=== PATIENT | female | born 1955 | race Two or more races ===

== ENCOUNTER 2017-10-23 12:18 | Emergency (ER) | payer MEDICAID ==
[~2017-10-23] VITALS: Ht 147.3 cm; Wt 54.4 kg
[2017-10-23] MEDS ORDERED: HYDROCHLOROTHIA25 MG ORAL (12:40)
[2017-10-23] MEDS ORDERED: HUMULIN N100 UNIT/1 SUBQ (12:40)
[2017-10-23] MEDS ORDERED: VITAMIN D400 INTLU ORAL (12:40)
[2017-10-23] MEDS ORDERED: CANDESARTAN CILE4 MG PO (12:40)
[2017-10-23] MEDS ORDERED: JANUVIA25 MG ORAL (12:40)
[2017-10-23] MEDS ORDERED: ATORVASTATIN CA40 MG ORAL (12:40)
[2017-10-23 13:24] LABS: BASOPHILS % (AUTO) 0.4 % (0.0-2.0); HEMATOCRIT 38.4 % (37.0-47.0); HEMOGLOBIN 12.7 G/DL (12.0-16.0); MEAN CORPUSCULAR VOLUME 92 FL (80-99); MONOCYTES % (AUTO) 3.7 % (1.0-10.0); NEUTROPHILS % (AUTO) 83.9 % (45.0-75.0); PLATELET COUNT 286 K/UL (150-450); RED BLOOD COUNT 4.19 M/UL (4.20-5.40); WHITE BLOOD COUNT 10.5 K/UL (4.8-10.8)
[2017-10-23 13:33] LABS: ANION GAP 12 mmol/L (5-15); BLOOD UREA NITROGEN 55 mg/dL (7-18); CALCIUM 10.1 MG/DL (8.5-10.1); CARBON DIOXIDE 25 MMOL/L (21-32); CHLORIDE 101 MMOL/L (98-107); CREATININE 1.9 MG/DL (0.55-1.30); POTASSIUM 4.7 MMOL/L (3.5-5.1); SODIUM 138 MMOL/L (136-145)
[2017-10-23 13:43] LABS: ALANINE AMINOTRANSFERASE 25 U/L (12-78); ALBUMIN 3.8 G/DL (3.4-5.0); ALBUMIN/GLOBULIN RATIO 0.9 (1.0-2.7); ALKALINE PHOSPHATASE 72 U/L (46-116); ASPARTATE AMINO TRANSFERASE 20 U/L (15-37); BILIRUBIN,TOTAL 0.2 MG/DL (0.2-1.0)
[2017-10-23] MEDS ORDERED: LORazepam 0.5mg tab ORAL ONE (13:45)
--- NOTE | 2017-10-23 13:47 | Emergency Room Report ---
History of Present Illness General Chief Complaint: Generalized Weakness Source: Patient Present Illness HPI 62-year-old female with history of hypertension, diabetes, high cholesterol and depression presents with symptoms of anxiety feeling restless and nervous, as well as feeling depressed, loss of appetite, and her symptoms of an worst for the last month since her father . She is here with her sister reports that multiple siblings come to visit her regularly, although patient does low alone. She is not suicidal, she's never tried herself, and she reports she used to be an antidepressants but ran out of them about 2 months ago , right about the time that her depression started worsening. Allergies: Coded Allergies: No Known Allergies (Unverified , 10/23/17) Patient History Past Medical History: see triage record Reviewed Nursing Documentation: PMH: Agreed; PSxH: Agreed Nursing Documentation-PMH Past Medical History: No History, Except For Hx Cardiac Problems: No Hx Hypertension: Yes Hx Pacemaker: No Hx Asthma: No Hx COPD: No Hx Diabetes: Yes Hx Cancer: No Hx Gastrointestinal Problems: No Hx Dialysis: No History Of Psychiatric Problem: No Hx Neurological Problems: No Hx Cerebrovascular Accident: No Hx Seizures: No Review of Systems All Other Systems: negative except mentioned in HPI Physical Exam Vital Signs Date Time Temp Pulse Resp B/P (MAP) Pulse Ox O2 Delivery O2 Flow Rate FiO2 10/23/17 12:33 98.4 100 18 136/81 99 Room Air 98.4 Sp02 EP Interpretation: reviewed, normal General Appearance: no apparent distress, alert, non-toxic Head: normocephalic Eyes: bilateral eye normal inspection, bilateral eye PERRL, bilateral eye EOMI ENT: normal ENT inspection, hearing grossly normal, normal pharynx, no angioedema, normal voice, moist mucus membranes Neck: normal inspection, full range of motion, supple, supple/symm/no masses Respiratory: chest non-tender, lungs clear, normal breath sounds, chest symmetrical, palpation of chest normal Cardiovascular #1: normal peripheral pulses, regular rate, rhythm Cardiovascular #2: 2+ radial (R), 2+ radial (L) Gastrointestinal: normal inspection, non tender, soft, no mass, no guarding, no rebound Rectal: deferred Genitourinary: normal inspection, no CVA tenderness Musculoskeletal: back normal, gait/station normal, normal range of motion, non- tender, no calf tenderness Neurologic: alert, responsive, blueprinter III-XII nml as tested, motor strength/tone normal, sensory intact, speech normal Psychiatric: judgement/insight normal, memory normal, no suicidal/homicidal ideation, depressed affect Skin: normal color, no rash, warm/dry, normal turgor Lymphatic: no adenopathy Medical Decision Making Diagnostic Impression: Primary Impression: Depression ER Course Patient has had a loss of appetite, but did eat an Czech muffin this morning, and has been eating, just not much interest, she is obviously depressed, I feel that some of her depression may be worsened secondary to her father's passing, but more so I think secondary to her being on a SSRI previously and then stopping abruptly 2 months ago when she ran out of her meds. She does have an appointment with her primary doctor who prescribes her to the SSRI and that appointment is on the of next month which is about 3 weeks from now. I requested that she try to get into see her doctor sooner, she is not suicidal, and she has excellent family support. She was found to have a BUN 55 and creatinine of 1.9, but normal electrolytes. We do not have previous lab results for the patient, so it's not certain this represents and acute vs. chronic kidney disease state. She's had a loss of appetite, but no vomiting or diarrhea or other fluid losses. We'll discharge her at this time diagnosis of depression and pre-renal azotemia, and she was given 1L NSS bolus, PO fluid encouraged, and requested f/u visit be moved up to later this week or return to the ER if unable to see PMD within the next week for repeat renal function test. EKG Diagnostic Results EKG Time: 12:47 EP Interpretation: no st-t changes, no twi's Rate: normal - rate 98 Rhythm: NSR ST Segments: no acute changes ASA given to the pt in ED: No Rhythm Strip Diag. Results Rhythm Strip Time: 13:46 EP Interpretation: yes Rate: 91 Rhythm: NSR, no PVC's, no ectopy Last Vital Signs Date Time Temp Pulse Resp B/P (MAP) Pulse Ox O2 Delivery O2 Flow Rate FiO2 10/23/17 12:33 98.4 100 18 136/81 99 Room Air 98.4 Disposition: HOME, SELF-CARE Condition: Stable Referrals: NON PHYSICIAN (PCP) LUIS CHI M.D Oct 23, 2017 13:47
[2017-10-23 14:50] VITALS: BP 129/79
--- NOTE | 2017-10-29 00:57 | Cardiology Report ---
APPROVED REPORT EKG Measurement Heart [id number] Normal sinus rhythm Normal ECG
== END 2017-10-23 14:50 | disposition home or self-care (01) ==
LOC: EMR 13:20
DX: F32.9 Major depressive disorder, single episode, unspecified (principal); E11.9 Type 2 diabetes mellitus without complications; I10 Essential (primary) hypertension; E78.00 Pure hypercholesterolemia, unspecified
CPT/HCPCS: 36415; 80053; 84484; 85025; 93005; 96360; 99284

== ENCOUNTER 2017-10-30 12:27 | Inpatient (IN) | payer MEDICAID ==
[~2017-10-30] VITALS: Ht 149.9 cm; Wt 52.2 kg
[~2017-10-30 12:27] MED LIST: ATORVASTATIN CA40 MG ORAL; CANDESARTAN CILE4 MG PO; HUMULIN N100 UNIT/1 SUBQ; HYDROCHLOROTHIA25 MG ORAL; JANUVIA25 MG ORAL; VITAMIN D400 INTLU ORAL
[2017-10-30] MEDS ORDERED: SERTRALINE HCL25 MG ORAL (12:47)
[2017-10-30 12:52] VITALS: BP 153/87
[2017-10-30 13:04] VITALS: BP 129/68
[2017-10-30 13:54] LABS: BASOPHILS % (AUTO) 0.5 % (0.0-2.0); EOSINOPHILS % (AUTO) 0.2 % (0.0-3.0); HEMATOCRIT 37.4 % (37.0-47.0); HEMOGLOBIN 12.7 G/DL (12.0-16.0); LYMPHOCYTES % (AUTO) 10.7 % (20.0-45.0); MEAN CORPUSCULAR VOLUME 89 FL (80-99); MONOCYTES % (AUTO) 4.8 % (1.0-10.0); NEUTROPHILS % (AUTO) 83.9 % (45.0-75.0); PLATELET COUNT 296 K/UL (150-450); RED BLOOD COUNT 4.19 M/UL (4.20-5.40); RED CELL DISTRIBUTION WIDTH 10.2 % (11.6-14.8); WHITE BLOOD COUNT 10.4 K/UL (4.8-10.8)
[2017-10-30 14:01] LABS: ANION GAP 12 mmol/L (5-15); BLOOD UREA NITROGEN 47 mg/dL (7-18); CALCIUM 9.4 MG/DL (8.5-10.1); CARBON DIOXIDE 25 MMOL/L (21-32); CHLORIDE 94 MMOL/L (98-107); CREATININE 1.7 MG/DL (0.55-1.30); POTASSIUM 4.4 MMOL/L (3.5-5.1); SODIUM 131 MMOL/L (136-145)
[2017-10-30 15:08] VITALS: BP 137/83
[2017-10-30] MEDS ORDERED: Milk of Magnesia 30ml Ud ORAL PRN (15:45)
[2017-10-30 16:08] VITALS: BP 128/61
[2017-10-30] MEDS ORDERED: Insulin NPH SUBQ SCH (16:30)
[2017-10-30] MEDS: NS w/KCl 20mEq 1,000 ML IV SCH (16:54)
--- NOTE | 2017-10-30 18:00 | History and Physical Report ---
DATE OF ADMISSION: 10/30/2017 CHIEF COMPLAINT AND REASON FOR HOSPITALIZATION: The patient is a 62-year-old [place] lady admitted with weakness, fatigue, elevated BUN and creatinine, depression. HISTORY OF PRESENT ILLNESS: The patient has been depressed for the last few months after the of her father at age 89. She lives alone. She today has been feeling weak with neck ache, headache, and poor appetite eating poorly in the last couple days. She does say she drinks moderate amount of water 4 to 5 bottles a day. She has insulin-dependent diabetes, hypertension, hyperlipidemia. MEDICATIONS: NPH insulin 25 units in morning and 20 units in the evening, Januvia 50 mg daily, candesartan 4 mg daily, atorvastatin 40 mg daily, vitamin D3 2000 units daily, sertraline 25 mg daily, hydrochlorothiazide 25 mg daily. ALLERGIES: None known. PAST SURGICAL HISTORY: None. HABITS: She is a nondrinker and nonsmoker. No use of illicit drugs. SYSTEM REVIEW: HEENT: She did have a cataract procedure on the left eye, diabetic retinopathy. Vision is stable. Hearing is good. ENDOCRINE: Diabetes as above. No known thyroid disease. PULMONARY: No asthma, TB, chronic cough. CARDIAC: History of hypertension and hyperlipidemia. No angina, TN, or palpitations. No leg edema. GASTROINTESTINAL: No gastrointestinal bleeding or ulcers. She has had some anorexia. No nausea or vomiting. GENITOURINARY: No dysuria, hematuria, or kidney stones. NEUROLOGIC: No CVA, syncope, or seizures. She does have some headaches today. MUSCULOSKELETAL: She is complaining of some neck pain. No history of trauma. No history of chronic joint pain. No use of nonsteroidal anti-inflammatory agents. PHYSICAL EXAMINATION: GENERAL: The patient is alert lady, in no acute distress. VITAL SIGNS: Temperature 97.9, pulse 94, respirations 14, blood pressure 129/68. HEENT: Sclerae nonicteric. Ocular motions intact in all directions. Oral mucosa moist. NECK: No adenopathy or thyroid enlargement. Neck is in good range of motion. LUNGS: Clear. ABDOMEN: Soft without organomegaly or masses. EXTREMITIES: No edema, cyanosis, or clubbing. No focal weakness. NEUROLOGIC: She is alert and oriented. No focal weakness. PERTINENT LABORATORY DATA: Show white count 10.4, hemoglobin 12.7. Sodium 131, potassium 4.4, chloride 94, CO2 25, BUN 47, creatinine 1.7. No urinalysis available at this time. IMPRESSION: 1. Elevated BUN and creatinine and low sodium very likely secondary to hydrochlorothiazide dehydration, possible chronic kidney disease. Detailed laboratories not available. 2. Fatigue and weakness, partially from dehydration. 3. Depression. 4. Neck pain, nonspecific likely musculoskeletal. 5. Tension headache. 6. Anorexia, possible gastritis. PLAN: The patient will be hydrated and given comfort measures. We will repeat her laboratories after some hydration, check her urine for proteinuria and make further assessment, treatment, plans as her condition warrants. Carroll Olivas M.D. DR: Hilaria JOB#: [id number] CC:
[2017-10-30 20:00] VITALS: BP 130/74
[2017-10-30] MEDS ORDERED: Atorvastatin 20mg tab ORAL SCH (21:00)
[2017-10-30] MEDS: Heparin 5000 units/ml inj SUBQ SCH (21:09)
[2017-10-31] VITALS: BP 100/59
[2017-10-31] MEDS: NS w/KCl 20mEq 1,000 ML IV SCH (03:08)
[2017-10-31 04:00] VITALS: BP 126/81
[2017-10-31 06:26] LABS: BASOPHILS % (AUTO) 1.2 % (0.0-2.0); EOSINOPHILS % (AUTO) 0.6 % (0.0-3.0); HEMOGLOBIN 12.4 G/DL (12.0-16.0); LYMPHOCYTES % (AUTO) 22.3 % (20.0-45.0); MEAN CORPUSCULAR VOLUME 91 FL (80-99); NEUTROPHILS % (AUTO) 66.9 % (45.0-75.0); PLATELET COUNT 292 K/UL (150-450); RED BLOOD COUNT 3.95 M/UL (4.20-5.40); RED CELL DISTRIBUTION WIDTH 10.6 % (11.6-14.8)
[2017-10-31] MEDS ORDERED: Insulin NPH SUBQ SCH (06:30)
[2017-10-31 06:53] LABS: ALANINE AMINOTRANSFERASE 30 U/L (12-78); ALBUMIN 3.4 G/DL (3.4-5.0); ALBUMIN/GLOBULIN RATIO 0.9 (1.0-2.7); ALKALINE PHOSPHATASE 79 U/L (46-116); ANION GAP 9 mmol/L (5-15); ASPARTATE AMINO TRANSFERASE 22 U/L (15-37); BILIRUBIN,TOTAL 0.4 MG/DL (0.2-1.0); BLOOD UREA NITROGEN 36 mg/dL (7-18); CALCIUM 9.3 MG/DL (8.5-10.1); CARBON DIOXIDE 27 MMOL/L (21-32); CHLORIDE 104 MMOL/L (98-107); CHOLESTEROL 220 MG/DL (< 200); CREATINE KINASE 76 U/L (26-308); CREATININE 1.6 MG/DL (0.55-1.30); HDL CHOLESTEROL 62 MG/DL (40-60); POTASSIUM 5.8 MMOL/L (3.5-5.1); SODIUM 140 MMOL/L (136-145); TRIGLYCERIDES 298 MG/DL (30-150)
[2017-10-31 08:26] VITALS: BP 130/71
[2017-10-31] MEDS: Heparin 5000 units/ml inj SUBQ SCH (08:30)
[2017-10-31] MEDS ORDERED: Losartan 50mg tab ORAL SCH (09:00)
[2017-10-31] MEDS ORDERED: Vitamin D 1000 IU Tab ORAL SCH (09:00)
[2017-10-31] MEDS ORDERED: Sertraline 50mg tab ORAL SCH (09:00)
[2017-10-31 12:04] VITALS: BP 140/83
[2017-10-31] MEDS ORDERED: SERTRALINE HCL50 MG ORAL (14:33)
--- NOTE | 2017-11-01 13:30 | Discharge Summary ---
DATE OF ADMISSION: 10/30/2017 DATE OF DISCHARGE: 10/31/2017 PERTINENT HISTORY: The patient is a 62-year-old lady, who presents with weakness, fatigue, elevated BUN and creatinine, depression. She is depressed after the of her 96-year-old father. There is a history of diabetes, hypertension. PERTINENT PHYSICAL FINDINGS: See my dictated History and Physical. HEAD, EYES, EARS, NOSE, AND THROAT: Unremarkable. LUNGS: Clear. HEART: Regular rhythm. ABDOMEN: Soft without organomegaly. EXTREMITIES: No edema. NEUROLOGIC: She is alert and oriented. Cranial nerves are intact. COURSE IN THE HOSPITAL: The patient had a BUN 47, creatinine 1.78, 25, and 36 and 1.68, 26. The potassium went from 4.4 to 5.8, as her was discontinued. The patient's diabetes is stable. She felt less depressed and she felt better and wished to go home. Her sertraline was increased from 25 to 50 mg daily for depression and her hydrochlorothiazide was stopped. FINAL DIAGNOSES: 1. Acute kidney injury secondary to thiazide diuretics. 2. Possible underlying chronic kidney disease, stage 3. 3. Diabetes. 4. Depression. 5. Neck pain, muscular strain. 6. Tension headache. 7. Anorexia. DISCHARGE DISPOSITION: Home on her prior to admission medications except the hydrochlorothiazide, which was to be stopped and the sertraline will be increased to 50 mg daily. Follow up by her PMD. Carroll Olivas M.D. DR: JOSE DAVID JOB#: [id number] CC:
--- NOTE | 2017-11-02 00:42 | Emergency Room Report ---
History of Present Illness General Chief Complaint: Abnormal Labs Source: Patient Present Illness HPI Patient present with complaints of general weakness Reports that she has been having decreased oral intake She reports that she had abnormal blood test on her previous visit here and has been unable to follow-up with her primary physician Denies any chest pain or shortness of breath Denies any vomiting denies any diarrhea Denies any flank pain Allergies: Coded Allergies: No Known Allergies (Unverified , 10/23/17) Patient History Past Medical History: see triage record Pertinent Family History: none Reviewed Nursing Documentation: PMH: Agreed; PSxH: Agreed Nursing Documentation-PMH Past Medical History: No History, Except For Hx Cardiac Problems: Yes Hx Hypertension: Yes Hx Pacemaker: No Hx Asthma: No Hx COPD: No Hx Diabetes: Yes Hx Cancer: No Hx Gastrointestinal Problems: No Hx Dialysis: No Hx Neurological Problems: No Hx Cerebrovascular Accident: No Hx Seizures: No Review of Systems All Other Systems: negative except mentioned in HPI Physical Exam Vital Signs Date Time Temp Pulse Resp B/P (MAP) Pulse Ox O2 Delivery O2 Flow Rate FiO2 10/30/17 12:40 97.8 85 14 153/87 94 Room Air 97.9 Sp02 EP Interpretation: reviewed, normal General Appearance: well appearing, no apparent distress Head: normocephalic, atraumatic Eyes: bilateral eye PERRL, bilateral eye EOMI ENT: hearing grossly normal, TMs + canals normal, uvula midline, dry mucus membranes Neck: full range of motion, supple, no meningismus, no bony tend Respiratory: lungs clear, normal breath sounds, no rhonchi, no respiratory distress, no retraction, no accessory muscle use Cardiovascular #1: normal peripheral pulses, regular rate, rhythm, no edema, no gallop, no JVD, no murmur Gastrointestinal: normal bowel sounds, non tender, soft, no mass, no organomegaly, non-distended, no guarding, no hernia, no pulsatile mass, no rebound Genitourinary: no CVA tenderness Musculoskeletal: normal inspection Neurologic: oriented x3, responsive, practice lead III-XII nml as tested, motor strength/ tone normal, sensory intact Skin: normal color, no rash, warm/dry, palpation normal Lymphatic: normal inspection, no adenopathy Medical Decision Making Diagnostic Impression: Primary Impression: Abnormal laboratory test result Additional Impression: renal failure ER Course Patient is a fairly complex patient with multiple differential to consideration including but not limited to cardiac cardiopulmonary and vascular emergencies Patient's blood work again reveals elevated BUN/creatinine Patient appears clinically dehydrated has further IV hydration initiated She also had mentioned feeling some depression and patient will have further inpatient care at this time is not actively homicidal or suicidal Labs Test 10/30/17 13:47 10/30/17 17:00 10/31/17 04:50 White Blood Count 10.4 K/UL (4.8-10.8) 6.0 K/UL (4.8-10.8) Red Blood Count 4.19 M/UL (4.20-5.40) 3.95 M/UL (4.20-5.40) Hemoglobin 12.7 G/DL (12.0-16.0) 12.4 G/DL (12.0-16.0) Hematocrit 37.4 % (37.0-47.0) 36.0 % (37.0-47.0) Mean Corpuscular Volume 89 FL (80-99) 91 FL (80-99) Mean Corpuscular Hemoglobin 30.3 PG (27.0-31.0) 31.5 PG (27.0-31.0) Mean Corpuscular Hemoglobin Concent 34.0 G/DL (32.0-36.0) 34.5 G/DL (32.0-36.0) Red Cell Distribution Width 10.2 % (11.6-14.8) 10.6 % (11.6-14.8) Platelet Count 296 K/UL (150-450) 292 K/UL (150-450) Mean Platelet Volume 6.8 FL (6.5-10.1) 7.2 FL (6.5-10.1) Neutrophils (%) (Auto) 83.9 % (45.0-75.0) 66.9 % (45.0-75.0) Lymphocytes (%) (Auto) 10.7 % (20.0-45.0) 22.3 % (20.0-45.0) Monocytes (%) (Auto) 4.8 % (1.0-10.0) 9.0 % (1.0-10.0) Eosinophils (%) (Auto) 0.2 % (0.0-3.0) 0.6 % (0.0-3.0) Basophils (%) (Auto) 0.5 % (0.0-2.0) 1.2 % (0.0-2.0) Sodium Level 131 MMOL/L (136-145) 140 MMOL/L (136-145) Potassium Level 4.4 MMOL/L (3.5-5.1) 5.8 MMOL/L (3.5-5.1) Chloride Level 94 MMOL/L (98-107) 104 MMOL/L (98-107) Carbon Dioxide Level 25 MMOL/L (21-32) 27 MMOL/L (21-32) Anion Gap 12 mmol/L (5-15) 9 mmol/L (5-15) Blood Urea Nitrogen 47 mg/dL (7-18) 36 mg/dL (7-18) Creatinine 1.7 MG/DL (0.55-1.30) 1.6 MG/DL (0.55-1.30) Estimat Glomerular Filtration Rate 30.4 mL/min (>60) 32.6 mL/min (>60) Glucose Level 194 MG/DL (74-106) 150 MG/DL (74-106) Calcium Level 9.4 MG/DL (8.5-10.1) 9.3 MG/DL (8.5-10.1) Urine Random Total Protein 1 MG/DL (< 11.9) Urine Random Sodium 54 mmol/L (20-110) Urine Creatinine 12.8 MG/DL (30.0-125.0) Uric Acid 7.3 MG/DL (2.6-7.2) Total Bilirubin 0.4 MG/DL (0.2-1.0) Aspartate Amino Transf (AST/SGOT) 22 U/L (15-37) Alanine Aminotransferase (ALT/SGPT) 30 U/L (12-78) Alkaline Phosphatase 79 U/L (46-116) Total Creatine Kinase 76 U/L (26-308) Creatine Kinase MB 1.0 NG/ML (0.0-3.6) Creatine Kinase MB Relative Index 1.3 Total Protein 7.0 G/DL (6.4-8.2) Albumin 3.4 G/DL (3.4-5.0) Globulin 3.6 g/dL Albumin/Globulin Ratio 0.9 (1.0-2.7) Triglycerides Level 298 MG/DL (30-150) Cholesterol Level 220 MG/DL (< 200) LDL Cholesterol 138 mg/dL (<100) HDL Cholesterol 62 MG/DL (40-60) Cholesterol/HDL Ratio 3.5 (3.3-4.4) Rhythm Strip Diag. Results EP Interpretation: yes Rate: 66 Rhythm: NSR, no PVC's, no ectopy Last Vital Signs Date Time Temp Pulse Resp B/P (MAP) Pulse Ox O2 Delivery O2 Flow Rate FiO2 10/31/17 12:04 97.2 84 18 140/83 (102) 96 97.2 10/31/17 09:00 Room Air Status: improved Disposition: ADMITTED INPATIENT Condition: Serious Scripts Sertraline Hcl* (ZOLOFT*) 50 Mg Tablet 50 MG ORAL DAILY for 30 Days, #30 TAB Prov: RICHIE LESTER 10/31/17 Referrals: NON PHYSICIAN (PCP) Patient Instructions: Chronic Kidney Disease Sera Galaviz DO Nov 02, 2017 00:42
== END 2017-10-31 15:25 | disposition home or self-care (01) | DRG 469 ==
LOC: EMR 13:25 → 4W 13:57 → EDBEDREQ 14:10
DX: N17.9 Acute kidney failure, unspecified (principal); E11.22 Type 2 diabetes mellitus with diabetic chronic kidney disease; T50.2X5A Adverse effect of carbonic-anhydrase inhibitors, benzothiadiazides and other diuretics, initial encounter; Y92.009 Unspecified place in unspecified non-institutional (private) residence as the place of occurrence of the external cause; N18.3 Chronic kidney disease, stage 3 (moderate); F32.9 Major depressive disorder, single episode, unspecified; S16.1XXA Strain of muscle, fascia and tendon at neck level, initial encounter; X58.XXXA Exposure to other specified factors, initial encounter; G44.209 Tension-type headache, unspecified, not intractable; R63.0 Anorexia; Z79.4 Long term (current) use of insulin
CPT/HCPCS: 36415; 80048; 80053; 80061; 82043; 82044; 82550; 82553; 82570; 82962; 84300; 84550; 85025; 99285